=== PATIENT | male | born 1990 | race Caucasian/White ===

== ENCOUNTER 2016-06-17 20:33 | Emergency (ER) | payer BC ==
[~2016-06-17] VITALS: Ht 182.9 cm; Wt 103.6 kg
[2016-06-17 20:40] VITALS: Ht 182.9 cm; Wt 103.6 kg
--- NOTE | 2016-06-17 21:06 | EMERGENCY ROOM VISIT NOTE ---
ED Visit Note First contact with patient: 20:44 CHIEF COMPLAINT: Left thumb laceration HISTORY OF PRESENT ILLNESS: This 25-year-old male patient presents to the emergency department ambulatory after cutting the left thumb just prior to arrival. The patient reports that he was cutting lettuce for a solid and accidentally slipped and cut his left thumb. The bleeding stopped shortly after the injury and there is no weakness or numbness of the area. Tetanus shot is up-to-date. Full range of motion of the thumb. The patient denies any pain. REVIEW OF SYSTEMS: A 6 system review of systems was completed with positives and pertinent negatives listed in the HPI. ALLERGIES: Bactrim MEDICATIONS: No chronic medications PMH: No significant past medical history. SOCIAL HISTORY: The patient lives locally with his son. He is a smoker and denies alcohol use. PHYSICAL EXAM: Vital Signs: Reviewed Nurse's notes, vital signs stable. GENERAL : This is a 25-year-old male, in no acute distress, well-developed, well- nourished. SKIN: There is a 1 cm long laceration to the tip of the left thumb. It is superficial and the edges only mildly gape apart with traction, but lay well without traction. There is no foreign material in the wound and it looks clean. There is no active bleeding. No deep structures such as tendons or nerves are seen in the base of the wound. Extension and flexion of the thumb is full and strong. Sensation to pain and light touch is intact. EMERGENCY DEPARTMENT COURSE: I examined the patient. Verbal consent was obtained to perform the procedure. The laceration was cleaned with betadine and sterile saline and there was no bleeding. The edges of the laceration were approximated and secured with 3 layers of Dermabond glue with good wound approximation. The patient tolerated the procedure well. The patient was discharged home in stable condition. DIAGNOSIS: Left thumb laceration Current/Historical Medications Miscellaneous Medications None (Patient States No Home Meds) Allergies Coded Allergies: Sulfamethoxazole w/Trimethoprim (Unverified Allergy, Unknown, UNKNOWN, 18/03) Vital Signs Date Time Temp Pulse Resp B/P Pulse Ox O2 Delivery O2 Flow Rate FiO2 06/17/16 21:12 37.1 81 16 137/81 98 06/17/16 21:08 81 16 137/81 98 Room Air 06/17/16 20:40 37.1 83 16 140/87 98 Room Air Departure Information Impression Primary Impression: Finger laceration Dispostion Home / Self-Care Condition GOOD Referrals Darnell Gutiérrez M.D. (PCP) Patient Instructions ED Laceration Ext Skin Glue, [facility] Additional Instructions For pain control, you can use the following [id number] medicines (if >12 yo): - Regular strength (325mg/tab) Tylenol (acetaminophen) 2 tabs every 4-6 hours as needed. Do not exceed 12 tablets in a 24 hour period. Avoid taking more than 4 grams (4000 mg) of Tylenol per day. This includes any other sources of acetaminophen you may take on a regular basis. - Regular strength (200 mg/tab) Advil (ibuprofen) 1-2 tabs every 4-6 hours as needed. Do not exceed a dose of 3200 mg per day. No ointments on the Dermabond. This will fall off on its own in several days. Problem Qualifiers Primary Impression: Finger laceration Encounter type: initial encounter Qualified Codes: S61.219A - Laceration without foreign body of unspecified finger without damage to nail, initial encounter
[2016-06-17 21:12] VITALS: BP 137/81; PULSE 81; TEMP 37.1; O2SAT 98
== END 2016-06-17 21:13 | disposition home or self-care (01) ==
LOC: C.EDB 20:34 → C.EDD 21:13
DX: S61.012A Laceration without foreign body of left thumb without damage to nail, initial encounter (principal); W26.0XXA Contact with knife, initial encounter; Y93.G1 Activity, food preparation and clean up; F17.200 Nicotine dependence, unspecified, uncomplicated

== ENCOUNTER → 2016-11-15 | Outpatient (CLI) | payer BC ==
[2016-11-15 12:59] LABS: BASO % 0.6 %; BASO ABS # 0.04 K/uL (0-0.2); COMPLETE YES; HEMATOCRIT 40.7 % (42-52); LYMPH % 28.5 %; LYMPH ABS # 2.04 K/uL (1.2-3.4); MEAN CELL VOLUME 94.4 fL (80-100); MEAN CORPUSCULAR HEMOGLOBIN 31.3 pg (25-34); MEAN CORPUSCULAR HGB CONC 33.2 g/dl (32-36); MEAN PLATELET VOLUME 11.1 fL (7.4-10.4); MONO % 8.9 %; PLATELET COUNT 290 K/uL (130-400); RED BLOOD COUNT 4.31 M/uL (4.7-6.1); WHITE BLOOD COUNT 7.17 K/uL (4.8-10.8)
[2016-11-15 13:30] LABS: URINE APPEARANCE CLEAR (CLEAR); URINE BILIRUBIN NEG (NEG); URINE COLOR YELLOW; URINE EPITHELIAL CELL AUTO 0-5 /lpf (0-5); URINE NITRITE NEG (NEG); URINE PH 6.5 (4.5-7.5); URINE SPECIFIC GRAVITY 1.031 (1.000-1.030); UROBILINOGEN NEG (NEG); ZZUR CULT IF INDIC CLEAN CATCH NO
[2016-11-15 13:34] LABS: ALT/SGPT 60 U/L (12-78); BLOOD UREA NITROGEN 15 mg/dl (7-18); BUN/CREATININE RATIO 17.8 (10-20); CARBON DIOXIDE 25 mmol/L (21-32); CHLORIDE 104 mmol/L (98-107); CHOLESTEROL 214 mg/dl (0-200); CREATININE 0.83 mg/dl (0.60-1.40); GLUCOSE 82 mg/dl (70-99); POTASSIUM 3.9 mmol/L (3.5-5.1); SODIUM 136 mmol/L (136-145); TRIGLYCERIDES 134 mg/dl (0-150); VERY LOW DENSITY LIPOPROT CALC 27 mg/dl
[2016-11-15 13:40] LABS: MANUAL MICROSCOPIC REQUIRED? NO; REVIEW REQ? NO
[2016-11-15 13:44] LABS: ALB/GLOB RATIO 1.2 (0.9-2); ALKALINE PHOSPHATASE 77 U/L (45-117); AST/SGOT 32 U/L (15-37); CHOLESTEROL/HDL RATIO 4.2; HDL CHOLESTEROL 51 mg/dl; LDL CHOLESTEROL CALCULATED 136 mg/dl
== END | disposition home or self-care (01) ==
LOC: C.LABBFT 09:26
PROVIDERS: ATTEND Internal Medicine
DX: R53.83 Other fatigue (principal); Z13.6 Encounter for screening for cardiovascular disorders

== ENCOUNTER → 2016-12-07 | Outpatient (CLI) | payer BC ==
[2016-12-07 12:31] LABS: BASO % 0.3 %; BASO ABS # 0.02 K/uL (0-0.2); COMPLETE YES; EOS % 1.7 %; HEMATOCRIT 40.5 % (42-52); IG% 0.7 %; LYMPH % 36.9 %; LYMPH ABS # 2.21 K/uL (1.2-3.4); MEAN CELL VOLUME 95.1 fL (80-100); MEAN CORPUSCULAR HEMOGLOBIN 32.2 pg (25-34); MEAN CORPUSCULAR HGB CONC 33.8 g/dl (32-36); MEAN PLATELET VOLUME 11.1 fL (7.4-10.4); MONO % 8.2 %; NEUT % 52.2 %; PLATELET COUNT 296 K/uL (130-400); RED BLOOD COUNT 4.26 M/uL (4.7-6.1); WHITE BLOOD COUNT 5.99 K/uL (4.8-10.8)
[2016-12-07 13:32] LABS: FERRITIN 169.3 ng/ml (8.0-388.0)
== END | disposition home or self-care (01) ==
LOC: C.LABBFT 10:26
PROVIDERS: ATTEND Physician Assistant Medical
DX: K92.1 Melena (principal)

== ENCOUNTER 2017-01-31 01:30 | Inpatient (IN) | payer BC ==
[~2017-01-31] VITALS: Ht 182.9 cm; Wt 103.6 kg
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
[2017-01-31 02:23] LABS: BASO % 0.4 %; BASO ABS # 0.03 K/uL (0-0.2); COMPLETE YES; EOS % 1.5 %; HEMATOCRIT 43.2 % (42-52); IG% 0.6 %; LYMPH % 46.9 %; LYMPH ABS # 3.64 K/uL (1.2-3.4); MEAN CELL VOLUME 93.9 fL (80-100); MEAN CORPUSCULAR HEMOGLOBIN 32.6 pg (25-34); MEAN CORPUSCULAR HGB CONC 34.7 g/dl (32-36); MEAN PLATELET VOLUME 10.4 fL (7.4-10.4); MONO % 7.7 %; NEUT % 42.9 %; PLATELET COUNT 319 K/uL (130-400); WHITE BLOOD COUNT 7.76 K/uL (4.8-10.8)
[2017-01-31 02:41] LABS: BUN/CREATININE RATIO 7.5 (10-20); CALCIUM 9.2 mg/dl (8.5-10.1); CREATININE 0.9 mg/dl (0.60-1.40); POTASSIUM 3.9 mmol/L (3.5-5.1)
[2017-01-31 02:51] LABS: ALB/GLOB RATIO 1.1 (0.9-2); THYROID STIMULATING HORMONE 2.5 uIu/ml (0.300-4.500)
[2017-01-31 03:02] LABS: ACETAMINOPHEN < 2 ug/ml (10-30)
[2017-01-31 03:18] LABS: URINE APPEARANCE CLEAR (CLEAR); URINE BILIRUBIN NEG (NEG); URINE COLOR YELLOW; URINE EPITHELIAL CELL AUTO 0-5 /lpf (0-5); URINE NITRITE NEG (NEG); UROBILINOGEN NEG (NEG); ZZUR CULT IF INDIC CLEAN CATCH NO
[2017-01-31 03:19] LABS: MANUAL MICROSCOPIC REQUIRED? NO; REVIEW REQ? NO
[2017-01-31 04:03] LABS: BENZODIAZEPINE, URINE NEG (NEG); COCAINE,URINE NEG (NEG); PHENCYCLIDINE, URINE NEG (NEG)
[2017-01-31] MEDS ORDERED: FLUO40CA8 PO (10:03)
[2017-01-31] MEDS ORDERED: BUSP-8 PO (10:04)
[2017-01-31] MEDS ORDERED: BUSP5TAB59 PO (10:04)
[2017-01-31] MEDS ORDERED: TRAZ50TA35 PO (10:06)
[2017-01-31 11:09] VITALS: O2SAT 99
[2017-01-31] MEDS ORDERED: SODIUM CHLORIDE 0.65% NA SOLN 45 ML (OCEAN) PRN (11:15)
[2017-01-31] MEDS ORDERED: ACETAMINOPHEN 325 MG TAB PO PRN (11:15)
[2017-01-31] MEDS ORDERED: ALUMINUM/MAGNESIUM SUSP 30 ML UDC PO PRN (11:15)
[2017-01-31] MEDS ORDERED: BISMUTH SUBSALICYLATE PER ML OMNICELL CHARGE PO PRN (11:15)
[2017-01-31] MEDS ORDERED: hydrOXYzine HCL 25 MG TAB PO PRN ×2 (11:15)
[2017-01-31] MEDS ORDERED: MAGNESIUM HYDROXIDE SUSP 30 ML UDC PO PRN (11:15)
[2017-01-31 11:46] VITALS: BP 136/72; TEMP 36.6; Ht 182.9 cm; Wt 103.6 kg
[2017-01-31] MEDS ORDERED: INFLUENZA ADMINISTRATION CHARGE ONE (14:00)
[2017-01-31] MEDS ORDERED: INFLUENZA VIRUS QUAD VACCINE 0.5 ML SYR IM. ONE (14:00)
--- NOTE | 2017-01-31 14:29 | EMERGENCY ROOM VISIT NOTE ---
ED Visit Note First contact with patient: 09:06 I received this patient in signout at the change of shift from Dr. Vivar pending mental health evaluation. The patient has signed a 201 and has been accepted by [facility] for inpatient treatment.
--- NOTE | 2017-01-31 16:10 | Psychiatric History & Physical ---
History Date of Service Jan 31, 2017. Identifying Data Fernando Hogue is a 26-year-old male who currently lives in the [place] area with his 5-year-old son. Fernando Hogue was admitted on a 201 voluntary commitment. Patient is admitted from home. The patient was brought to the ED by the family. Information provided by the patient is considered to be reliable. Chief Complaint "I have been under a lot of stress and I was feeling suicidal." History of Present Illness The patient is a 26-year-old man who presented last evening in the emergency room, where he was brought by his family after he told several people, including his mother, his father, and a friend that he was contemplating suicide. He tells me that he has had intermittent bouts of depression since he was 14, but had been doing fairly well and tell recently when his girlfriend announced that she wanted to end the relationship, at least until next May ( when the couple had planned a trip to [place]). The precipitating factor in the admission appears to be in the fact that he and his mother had an angry argument after the patient's mother confronted him about the fact that he was continuing to drink. The patient reports that he ask his mother to try to understand that he is under a great deal of stress, and apparently during the argument he revealed to the mother the fact that he had recently superficially cut his upper thighs with a knife, while intoxicated. Reportedly, the patient said that he was contemplating suicide by gunshot wound, but he tells me that he does not have access to firearms. He does robbins, but the firearms are locked up in his father's gun safe and he does not have a gun in his own home. The patient also tells me that his thoughts of suicide including thoughts of hanging himself in the garage, but he denies that he had any intent to follow through on these thoughts and, instead, was interested in having his parents and his friend understand the degree of his distress. Within this context, the patient reports that his depression is actually improved recently. His outpatient psychiatrist only increased his dose of Prozac to 40 mg daily, and buspirone 15 mg twice a day have been added. The patient states, "I've been a lot less anxious, and my depression is better." The patient acknowledges that he has been consuming alcohol, even though he realizes that this is inconsistent with his best interests and may interfere with the efficacy of his treatment for depression. He tells me that typically he drinks between 6 and 8 beers a night, after his 5-year-old son has gone to bed. However, he notes that his cut back on his alcohol consumption and is only drinking 6-8 beers every 3 or 4 days, and is abstinent on the other nights. The patient reports that he has never consumed alcohol in quantities higher than this amount, but admits that sometimes he does become intoxicated. He has no history of actual suicide attempts, although he said that when he was 14 he tied a shoestring around his stack and then removed it. 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 He was scheduled to start next week, but because of a difficulty with his licensure [place] he will not be able to start until February. He is also a single parent, but notes that he enjoys a great deal of help from both of his parents, especially his mother who assists in his director of early childhood education responsibilities. The patient is currently followed by Dr Marie at [facility], and he also sees a therapist for individual supportive therapy. As above, the patient feels that he is making progress in therapy and considers the events of yesterday and last evening to be an anomaly , precipitated by the argument with his mother.. Past Psychiatric History Current OP Treatment: psychiatrist, therapist Access to a Gun: No (the patient tells me that he enjoys hunting as a leisure activity, but does not own a gun and uses condoms that his father keeps locked up in a gun safe at his father's home. He does not have access to the gun safe. ) Suicide Attempts: No Past Medication Trials The patient reports that he has responded favorably to Prozac and buspirone, with reduced depression and relief in his symptoms of anxiety. Past Medical/Surgical History History of Concussion/Seizure: No Allergies Allergies: Coded Allergies: Sulfamethoxazole w/Trimethoprim (Unverified Allergy, Unknown, UNKNOWN, 01/31/17) Home Medications Scheduled Buspirone Hcl (Buspirone Hcl), 1 TAB PO BID Buspirone Hcl (Buspirone Hcl), 1 TAB PO BID Fluoxetine (Prozac), 40 MG PO DAILY Trazodone Hcl (Trazodone), 50 MG PO HS Family History Diabetes mellitus FH: lung disease History of Suicide: No History of Substance Abuse: No Psychiatric History: Yes Alcohol Use Alcohol Use In Past 12 Months: Yes (every other day - 6 pack ) AUDIT Total Score: 10 The patient reports that he has recently cut back on his alcohol consumption. His peak alcohol consumption had previously been 4-8 beers every evening,, but he is now drinking 4-8 beers a night, but only every 3 or 4 days. Smoking Use Smoking Status: Current Every Day Smoker Personal History Education: advanced degree (the patient says that he graduated at the top of his class in preschool, with a 4.0 grade point average ) Relationship History: never Children: 1 Legal History: none Psychological Trauma History: Denies Hx Traumatic Event Review of Systems Constitutional: denies no symptoms reported, denies see HPI, denies chills, denies diaphoresis, denies fever, denies malaise, denies weakness, denies other Eyes: denies: no symptoms, as stated in HPI, eye pain, tearing, itching, redness, discharge, double vision, visual changes, blurred vision, photophobia, other ENT: denies: no symptoms reported, see HPI, ear pain, ear discharge, loss of hearing, tinnitus, nasal pain, nasal congestion, rhinorrhea, epistaxis, sore throat, stidor, throat swelling, mouth pain, mouth swelling, dental pain, gum swelling, other Cardiovascular: denies: no symptoms reported, see HPI, chest pain, chest tightness, chest pressure, diaphoresis, palpitations, syncope, other Respiratory: denies: no symptoms reported, see HPI, cough, orthopnea, short of breath, stridor, wheezing, sputum production, cyanosis, LIMA, PND, other Gastrointestinal: denies no symptoms reported, denies see HPI, denies abdominal pain, denies constipation, denies diarrhea, denies nausea, denies vomiting, denies other Genitourinary - Male: denies: no symptoms, see HPI, rash, amenorrhea, penile itching, penile discharge, testicular pain, testicular swelling, impotence, other Musculoskeletal: denies no symptoms reported, denies see HPI, denies back pain , denies gout, denies joint pain, denies joint swelling, denies muscle pain, denies muscle stiffness, denies neck pain, denies other Integumentary: denies no symptoms reported, denies see HPI, denies change in color, denies change in hair/nails, denies dryness, denies lesions, denies lumps , denies rash, denies other Neurologic: denies: no symptoms, see HPI, headache, numbness, paresthesias, pre -existing deficit, seizure, tingling, tremors, general weakness, tics, focal weakness, vertigo, lethargy, memory loss, dizziness, other Endocrine: denies: no symptoms, as stated in HPI, cold intolerance, heat intolerance, hair changes, goiter, polydipsia, polyuria, skin changes, other Hematologic / Lymphatic: denies: no symptoms, as stated in HPI, abnormal clotting, adenopathy, anemia, easy bleeding, easy bruising, gums bleeding, petechiae, other Examination Physical Examination A physical exam was performed in the ER prior to admission to the unit. I accept that physical as correct/medical clearance for the inpatient physical exam. Vital Signs Vital Signs Past 12 Hours Date Time Temp Pulse Resp B/P (MAP) Pulse Ox O2 Delivery O2 Flow Rate FiO2 01/31/17 11:46 36.6 14 136/72 01/31/17 11:09 76 14 126/71 99 01/31/17 07:56 71 16 131/78 99 Room Air 01/31/17 05:13 36.6 68 18 114/69 99 Room Air Laboratory Results Last 24 Hours Test 01/31/17 02:14 01/31/17 03:07 White Blood Count 7.76 K/uL Red Blood Count 4.60 M/uL Hemoglobin 15.0 g/dL Hematocrit 43.2 % Mean Corpuscular Volume 93.9 fL Mean Corpuscular Hemoglobin 32.6 pg Mean Corpuscular Hemoglobin Concent 34.7 g/dl Platelet Count 319 K/uL Mean Platelet Volume 10.4 fL Neutrophils (%) (Auto) 42.9 % Lymphocytes (%) (Auto) 46.9 % Monocytes (%) (Auto) 7.7 % Eosinophils (%) (Auto) 1.5 % Basophils (%) (Auto) 0.4 % Neutrophils # (Auto) 3.32 K/uL Lymphocytes # (Auto) 3.64 K/uL Monocytes # (Auto) 0.60 K/uL Eosinophils # (Auto) 0.12 K/uL Basophils # (Auto) 0.03 K/uL RDW Standard Deviation 43.8 fL RDW Coefficient of Variation 12.8 % Immature Granulocyte % (Auto) 0.6 % Immature Granulocyte # (Auto) 0.05 K/uL Sodium Level 139 mmol/L Potassium Level 3.9 mmol/L Chloride Level 106 mmol/L Carbon Dioxide Level 28 mmol/L Anion Gap 5.0 mmol/L Blood Urea Nitrogen 7 mg/dl Creatinine 0.90 mg/dl Est Creatinine Clear Calc Drug Dose 156.2 ml/min Estimated GFR () 137.1 Estimated GFR (Non- 118.3 BUN/Creatinine Ratio 7.5 Random Glucose 89 mg/dl Calcium Level 9.2 mg/dl Total Bilirubin 0.6 mg/dl Aspartate Amino Transf (AST/SGOT) 30 U/L Alanine Aminotransferase (ALT/SGPT) 52 U/L Alkaline Phosphatase 82 U/L Total Protein 8.5 gm/dl Albumin 4.5 gm/dl Globulin 4.0 gm/dl Albumin/Globulin Ratio 1.1 Thyroid Stimulating Hormone (TSH) 2.500 uIu/ml Salicylates Level 2.5 mg/dl Acetaminophen Level < 2 ug/ml Ethyl Alcohol mg/dL 202.0 mg/dl Urine Color YELLOW Urine Appearance CLEAR Urine pH 6.0 Urine Specific [place] 1.010 Urine Protein NEG Urine Glucose (UA) NEG Urine Ketones NEG Urine Occult Blood NEG Urine Nitrite NEG Urine Bilirubin NEG Urine Urobilinogen NEG Urine Leukocyte Esterase NEG Urine WBC (Auto) 0 /hpf Urine RBC (Auto) 0-4 /hpf Urine Hyaline Casts (Auto) 0 /lpf Urine Epithelial Cells (Auto) 0-5 /lpf Urine Bacteria (Auto) NEG Urine Opiates Screen NEG Urine Methadone, Qualitative NEG Urine Barbiturates NEG Urine Phencyclidine (PCP) Level NEG Ur Amphetamine/Methamphetamine NEG MDMA (Ecstasy) Screen NEG Urine Benzodiazepines Screen NEG Urine Cocaine Metabolite NEG Urine Marijuana (THC) NEG Mental Examination During interview pt is: alert and oriented Appearance: appropriately dressed Eye contact is: good Motor behavior is: steady gait & station, no abnormal motor movements Speech: normal in rate, rhythm & volume Affect: depressed Mood is: depressed Thought process: goal directed, linear, logical, clear, coherent Thought content: reality based without delusions Suicidal thought are: present, Plan: present, Intent: denied Homicidal thoughts are: denied Hallucinations: denies auditory, denies visual Cognition: memory grossly intact Intelligence estimated to be: above average Insight: good Judgement: fair Impression / Recommendations Impression This 26-year-old man reports that he has had recurrent bouts of depression, characterized by insomnia, apathy, anergy, anhedonia, and psychosocial withdrawal. He has been under treatment with a local psychiatrist, as well as with a local psychotherapist for depression and anxiety. Although he reports that recently his depression and anxiety have both improved in response to an increase in his dose of Prozac and the inauguration of buspirone 15 mg twice a day, on the day prior to admission he had an argument with his mother, revealed that he had superficially cut his thighs, and threatened suicide he says as a way of communicating to his mother that he needs her to stop criticizing him and putting additional pressure on him. In addition to telling his mother he was suicidal, he acknowledges that he also told his father lives separately from the mother, that he was suicidal, and later in the evening he called a friend who lives in another state and told him that he was having thoughts of suicide. Evidently, the friend contacted the patient's mother, as well as 2 of the patient's local friends, and arrangements were made for the patient to be brought to the emergency room for psychiatric evaluation. The patient acknowledges that he had been drinking at the point that he called the friend to report that he was suicidal, but denies that he had any actual suicidal intent. The patient does say that he had considered hanging himself in the garage, but adds, "I wouldn't actually do that. For one thing I couldn't do it to my son." (The patient is the snf parent for his 5-year-old son) the patient also says that he has only recently engaged in self cutting, and he says that he only does this when he has been drinking. He says that he believed that possibly it would relieve some of the stress and tension, but says that it only makes him feel worse. As above, the patient says that he does not have any history of suicide attempts, but was trying to find a way of communicating to his friends and family that he is under a lot of pressure, and is very distressed about the loss of his romantic relationship, the stress of being a single parent, and the disappointment of not being able to start his new job this month as he had expected. He does endorse ongoing suicidal thoughts, although he is also future oriented. We will provide supportive treatment, continue buspirone 15 mg twice a day and Prozac 40 mg daily. He contracts for safety in the hospital. Inventory Assets Strengths: Intelligent. Academically successful. Has friends and a supportive family Needs: Alcohol abuse. Depression. Anxiety. Poor individual coping skills. Risk Factors Assessment Male: Yes : Yes /single/: Yes Higher / Fall in social status: No Access to guns: No Health problems: No Mental Health Diagnoses: Yes Substance use disorders: Yes Previous attempt: No Smoker: Yes Protective Factors Assessment : No Responsible for young children: Yes Employed: Yes Stable relationships: Yes Supportive family: Yes Good rapport with provider: Yes Absence of risk factors above: Yes Recommendations (1) Depression The patient gives a history of recurrent major depressive episodes that are characterized by depressed mood, insomnia, apathy, anergy, anhedonia, and psychosocial withdrawal. He reports that he has attempted to manage his depression and anxiety through the use of alcohol. Somewhat paradoxically, the patient reports that his depression is actually improved similarly, possibly in response to his reduced consumption of alcohol and several medication adjustments provided by his outpatient psychiatrist. (2) Suicidal ideation The patient continues to endorse suicidal thoughts, although he says "right now , today, I'm not have any thoughts of suicide." As of yesterday though he reported suicidal thoughts, reported these thoughts to several family members and friend, and tells me that he was having thoughts of hanging himself by the patient in the garage of his home. He says that he did not have suicidal intent , and believes that he mostly was trying to help people understand the degree of his distress, after a very difficult "bad day." Copying the situation is the recent romantic disappointment for the patient has experienced as well as other psychosocial stressors. He does not have a history of suicide attempts. (3) Alcohol abuse The patient is aware that his use of alcohol is problematic and is contraindicated within the context of his being in treatment for depression. I reminded him that alcohol is a "depressant," and as such can induce and worsening depression. I also advised him that it could adversely interfere with his psychiatric medications. We discussed participation in Alcoholics Anonymous, and the patient indicates that he will consider this. CPT Code Initial Hospital Care: [id number]
[2017-01-31] MEDS: BusPIRone 15 MG TAB PO SCH (17:33)
[2017-01-31] MEDS: TRAZODONE HCL 50 MG TAB PO SCH (22:16)
[2017-02-01 06:57] VITALS: BP_SYST 123; BP_SYST 126; BP_DIAS 78; BP_DIAS 86; PULSE 60; PULSE 73; TEMP 36.8
[2017-02-01] MEDS: FLUOXETINE HCL 20 MG CAP PO SCH (08:55)
[2017-02-01] MEDS: BusPIRone 15 MG TAB PO SCH ×2 (08:55→17:23)
--- NOTE | 2017-02-01 15:10 | Psychiatric Progress Notes ---
Progress Note Date of Service Feb 01, 2017. Interval History This 26-year-old man was admitted yesterday after he was brought to the emergency room by friends and family because he had threatened suicide either by gunshot wound or by hanging. The patient was intoxicated at the time, and upon sobering said that he was no longer suicidal. However, he didn't endorse ongoing feelings of anxiety and depression. Prior to admission, he had been a patient of Dr. Marie, and notes that his depression had improved after to Dr. Marie increased his dose of Prozac to 40 mg daily and added buspirone 15 mg twice a day. Complicating the clinical picture is the fact the patient acknowledges that he has been drinking between 4 and 8 beers a night, mostly after his 5-year-old son is gone to bed. At the time of admission, the patient reported that the frequency of his alcohol use had diminished from nightly to every 3 or 4 nights. He has no history of suicide attempts, and this is the patient's first psychiatric hospitalization. Chief Complaint "I'm doing a whole lot better". Subjective 02/01/17 --Patient was seen & assessed interval progress reviewed with Treatment Team. I met individually with the patient in order to assess his current mental status, review his treatment plan with him, and discuss matters that may arise The patient tells me that he feels that the hospitalization has been very helpful to him. He reports that it has been liberating to be able to talk about was going on with people that seem to understand, and notes that although he had been very frightened at admission about coming into an inpatient psychiatric unit, he has found the express to be quite therapeutic. The patient clarifies that he was not driving while intoxicated, and, more specifically, the patient reports that he was not operating a motor vehicle while intoxicated order the influence of alcohol with his son in the car. He says that he began drinking later on the day of admission, and did not leave the home and tell he was taken to the emergency room for evaluation. Currently , the patient reports that his mood is "good" and "optimistic." He commits to sobriety, and explains that he understands that his use of alcohol to manage depression and anxiety has had seriously negative consequences that he does not wish to repeat. He points out that his strengths include determination, a willingness to work hard, and he drive to succeed. We will observe the patient overnight tonight. His outpatient psychiatrist is expected to see him tomorrow , and a determination will be made at that time the patient can be discharged to home on Saturday or Saturday, or if he will need a few more days of hospitalization for discharge on Saturday. Sleep Information Total Hours of Sleep: 6.50 Meal Information Percent of Breakfast Consumed: 100 Percent of Lunch Consumed: 100 Percent of Dinner Consumed: 75 Mental Status Exam During interview pt is: alert and oriented Appearance: appropriately dressed Eye contact is: good Motor behavior is: steady gait & station, no abnormal motor movements Speech: normal in rate, rhythm & volume Affect: euthymic Mood is: other ("Good. Not depressed right now. Not anxious.") Thought process: goal directed, linear, logical, clear, coherent Thought content: reality based without delusions Suicidal thought are: denied, Plan: present, Intent: denied Homicidal thoughts are: denied (the patient reports that he believes that he was at some risk for self-harm on the night of admission, as a function of his intoxication. He says that he is very glad that an intervention was made because he has no intent or desire to harm himself other. The patient continues to contract for safety.) Hallucinations: denies auditory, denies visual Cognition: memory grossly intact Intelligence estimated to be: above average Insight: good Judgement: fair Impression This 26-year-old man made several suicide threats on the night prior to and morning of admission to the hospital. He was intoxicated at the time, and explains that he had been under a number of psychosocial stressors, and had been attempting to use alcohol as a mechanism for coping. Somewhat paradoxically, the patient notes that his mood and anxiety levels are actually improved recently, partly in response to interventions by his individual psychotherapist and in response to an increase in his dose of Prozac, with the addition of buspirone 15 mg twice a day. Today, the patient tells me that his mood is "good." He has had no further thoughts of suicide and has developed a safety plan that will include not consuming alcohol, talking with his psychiatrist or therapist should suicidal thoughts emerge, limiting stress, and remaining active. Plan (1) Depression 01/31/17 --The patient gives a history of recurrent major depressive episodes that are characterized by depressed mood, insomnia, apathy, anergy, anhedonia, and psychosocial withdrawal. He reports that he has attempted to manage his depression and anxiety through the use of alcohol. Somewhat paradoxically, the patient reports that his depression is actually improved similarly, possibly in response to his reduced consumption of alcohol and several medication adjustments provided by his outpatient psychiatrist. 02/01/17 -- patient reports that his depression has improved substantially in the hospital, and believes that the supportive psychotherapy services that have been offered here have been very helpful to him. He identifies the use of alcohol as a way of managing anxiety and depression as well as both dangerous and counterproductive, and he is making a commitment to sobriety. Patient is no longer having any suicidal thoughts, and he denies having suicidal intent, although he acknowledges that he might have engaged in self-harm while impaired by alcohol. For that reason, he understands that he is not going to be able to consume any alcohol. His treating psychiatrist will see him harm, and if the treating psychiatrist is in agreement it may be possible for the patient to be discharged to either Saturday or Saturday. (2) Suicidal ideation The patient continues to endorse suicidal thoughts, although he says "right now , today, I'm not have any thoughts of suicide." As of yesterday though he reported suicidal thoughts, reported these thoughts to several family members and friend, and tells me that he was having thoughts of hanging himself by the patient in the garage of his home. He says that he did not have suicidal intent , and believes that he mostly was trying to help people understand the degree of his distress, after a very difficult "bad day." Copying the situation is the recent romantic disappointment for the patient has experienced as well as other psychosocial stressors. He does not have a history of suicide attempts. (3) Alcohol abuse 01/31/17 --The patient is aware that his use of alcohol is problematic and is contraindicated within the context of his being in treatment for depression. I reminded him that alcohol is a "depressant," and as such can induce and worsening depression. I also advised him that it could adversely interfere with his psychiatric medications. We discussed participation in Alcoholics Anonymous, and the patient indicates that he will consider this. 02/01/17 -- as noted above, the patient tells me that he has learned that he was using alcohol as a way of attempting to manage his anxiety and depression. He has come to the realization that while drinking temporarily relieved his anxiety and his feelings of being "stressed out," the consequences have been highly counterproductive and potentially dangerous, and he is making a commitment to sobriety. It is expected that he will be able to use his strength which include perseverance, and a desire to succeed. Discharge / Aftercare Planning Primary Care Physician: Name: Dr Gutiérrez [facility] [place] Date of Appointment: Feb 20, 2017 Time of Appointment: 1:35pm Therapist: Name: Kasie NagyCloudTran Date of Appointment: Feb 05, 2017 Time of Appointment: 1:00pm [facility] Sales: Name: N/A Visit Code E&M Code: 30869 Inventory Assets Strengths: Intelligent. Academically successful. Has friends and a supportive family Needs: Alcohol abuse. Depression. Anxiety. Poor individual coping skills. Risk Factors Assessment Male: Yes : Yes /single/: Yes Higher / Fall in social status: No Health problems: No Mental Health Diagnoses: Yes Substance use disorders: Yes Previous attempt: No Smoker: Yes Protective Factors Assessment : No Responsible for young children: Yes Employed: Yes Stable relationships: Yes Supportive family: Yes Good rapport with provider: Yes Absence of risk factors above: Yes Data Vital Signs Last 24 Hrs: Date Time Temp Pulse Resp B/P (MAP) Pulse Ox O2 Delivery O2 Flow Rate FiO2 02/01/17 06:57 36.8 60 16 123/78 73 126/86 Meds Administered Last 24 Hrs: Meds Administered (Past 24Hrs) Medications (Trade) Dose Ordered Sig/Forest Route Start Time Stop Time Status Last Admin Dose Admin Influenza Virus Vaccine Quadrival (Flucelvax Quad Vaccine) 0.5 ml ONCE ONCE IM. 01/31/17 14:00 01/31/17 14:01 DC 01/31/17 22:20 0.5 ML Fluoxetine HCl (Prozac Cap) 40 mg QAM PO 02/01/17 09:00 03/03/17 08:59 02/01/17 08:55 40 MG Buspirone HCl (BusPAR TAB) 15 mg BID17 PO 01/31/17 17:00 03/02/17 16:59 02/01/17 08:55 15 MG Trazodone HCl (Desyrel Tab) 50 mg HS PO 01/31/17 22:00 03/02/17 21:59 01/31/17 22:16 50 MG
[2017-02-01] MEDS: TRAZODONE HCL 50 MG TAB PO SCH (22:50)
[2017-02-02 06:48] VITALS: BP_SYST 119; BP_SYST 128; BP_DIAS 72; BP_DIAS 77; PULSE 57; PULSE 74; TEMP 36.9
[2017-02-02] MEDS: FLUOXETINE HCL 20 MG CAP PO SCH (08:43)
[2017-02-02] MEDS: BusPIRone 15 MG TAB PO SCH ×2 (08:43→17:22)
--- NOTE | 2017-02-02 16:41 | Psychiatric Progress Notes ---
Progress Note Date of Service Feb 02, 2017. Interval History This 26-year-old man was admitted yesterday after he was brought to the emergency room by friends and family because he had threatened suicide either by gunshot wound or by hanging. The patient was intoxicated at the time, and upon sobering said that he was no longer suicidal. However, he didn't endorse ongoing feelings of anxiety and depression. Prior to admission, he had been a patient of Dr. Marie, and notes that his depression had improved after to Dr. Marie increased his dose of Prozac to 40 mg daily and added buspirone 15 mg twice a day. Complicating the clinical picture is the fact the patient acknowledges that he has been drinking between 4 and 8 beers a night, mostly after his 5-year-old son is gone to bed. At the time of admission, the patient reported that the frequency of his alcohol use had diminished from nightly to every 3 or 4 nights. He has no history of suicide attempts, and this is the patient's first psychiatric hospitalization. Chief Complaint "this was a wake up call". Subjective Patient was seen & assessed interval progress reviewed with nursing. Seen with Cici DODGE observing. Pt is known to senior mortgage underwriter as seen currently as an outpt under my care. Pt endorsed SI while drinking prior to admission and how realizes how much has been using alcohol as a self medicating attempt to deal with things but worsens everything and how things fall apart when he uses the alcohol to handle the intense stressors.He processed feeling nagged by his mother in two interactions recently during today's assessment. He shared how he had a good discussion with father the day prior to admission. Father s out of town on a hunting trip but will be back by Saturday. HE plans ot stay with father once Father is back in town but will have mother stay with him till father comes back in town. Pt is open to seeing a substance based counselor on top of his individual therapist. He is finding his medications to be alleviating for him and wants to maintain the prozac and buspar dosage. He is comfortable not using chantix for now since only resumed smoking for a few days and not having urges to smoke currently. He is open to not drinking any alcohol for time being and then down the road consider contained limited sporadic drinking of alcohol only. He is interested in maintaining appts with his therapist and with senior mortgage underwriter as an outpt. He shared how has not had SI since admission and no urges or thoughts towards SIB. He is planning to continue being more active to help fill the time that is aviable to him between now and the start of his new job. He would like to be discharged soon. no manic symptoms no psychotic symptoms Review of Systems Constitutional: No fever, No chills, No sweats, No weight loss, No weakness, No fatigue, No problem reported ENT: No hearing loss, No unusual epistaxis, No nasal symptoms, No sore throat, No tinnitus, No dental problems, No trouble swallowing, No problem reported Respiratory: No cough, No sputum, No wheezing, No shortness of breath, No dyspnea on exertion, No dyspnea at rest, No hemoptysis, No problem reported Cardiovascular: No chest pain, No orthopnea, No PND, No edema, No claudication , No palpitations, No problem reported Abdomen: No pain, No nausea, No vomiting, No diarrhea, No constipation, No GI bleeding, No problem reported Musculoskeletal: No joint pain, No muscle pain, No swelling, No calf pain, No problem reported Psychiatric: + problem reported (as above denied other ) Sleep Information Total Hours of Sleep: 6.00 Meal Information Percent of Breakfast Consumed: 90 Percent of Lunch Consumed: 100 Percent of Dinner Consumed: 100 Mental Status Exam During interview pt is: alert and oriented Appearance: appropriately dressed Eye contact is: good Motor behavior is: steady gait & station, no abnormal motor movements Speech: normal in rate, rhythm & volume Affect: euthymic Mood is: other ("Good. Not depressed right now. Not anxious.") Thought process: goal directed, linear, logical, clear, coherent Thought content: reality based without delusions Suicidal thought are: denied, Plan: present, Intent: denied Homicidal thoughts are: denied Hallucinations: denies auditory, denies visual Cognition: memory grossly intact Intelligence estimated to be: above average Insight: good Judgement: fair Impression This 26-year-old man made several suicide threats on the night prior to and morning of admission to the hospital. He was intoxicated at the time, and explains that he had been under a number of psychosocial stressors, and had been attempting to use alcohol as a mechanism for coping. Somewhat paradoxically, the patient notes that his mood and anxiety levels are actually improved recently, partly in response to interventions by his individual psychotherapist and in response to an increase in his dose of Prozac, with the addition of buspirone 15 mg twice a day. Today, the patient tells me that his mood is "good." He has had no further thoughts of suicide and has developed a safety plan that will include not consuming alcohol, talking with his psychiatrist or therapist should suicidal thoughts emerge, limiting stress, and remaining active. Plan (1) Depression 01/31/17 --The patient gives a history of recurrent major depressive episodes that are characterized by depressed mood, insomnia, apathy, anergy, anhedonia, and psychosocial withdrawal. He reports that he has attempted to manage his depression and anxiety through the use of alcohol. Somewhat paradoxically, the patient reports that his depression is actually improved similarly, possibly in response to his reduced consumption of alcohol and several medication adjustments provided by his outpatient psychiatrist. 02/01/17 -- patient reports that his depression has improved substantially in the hospital, and believes that the supportive psychotherapy services that have been offered here have been very helpful to him. He identifies the use of alcohol as a way of managing anxiety and depression as well as both dangerous and counterproductive, and he is making a commitment to sobriety. Patient is no longer having any suicidal thoughts, and he denies having suicidal intent, although he acknowledges that he might have engaged in self-harm while impaired by alcohol. For that reason, he understands that he is not going to be able to consume any alcohol. His treating psychiatrist will see him harm, and if the treating psychiatrist is in agreement it may be possible for the patient to be discharged to either Saturday or Saturday. 02/02/17 maintained meds unchanged, addressed alcohol use as aggravating factor. addressed responses to dose raise of prozac to 40mg and addition of buspar. addressed stressors of breaking up with gf, interpersonal tension with mother. encouraged family meeting wiht mother, pt prefers to do this as part of an outpt appt with outpt therapist since feels it would be more likely to be productive in that setting. (2) Suicidal ideation The patient continues to endorse suicidal thoughts, although he says "right now , today, I'm not have any thoughts of suicide." As of yesterday though he reported suicidal thoughts, reported these thoughts to several family members and friend, and tells me that he was having thoughts of hanging himself by the patient in the garage of his home. He says that he did not have suicidal intent , and believes that he mostly was trying to help people understand the degree of his distress, after a very difficult "bad day." Copying the situation is the recent romantic disappointment for the patient has experienced as well as other psychosocial stressors. He does not have a history of suicide attempts. 02/02 - denied further SI and contracts for safety outside of the hospital (3) Alcohol abuse 01/31/17 --The patient is aware that his use of alcohol is problematic and is contraindicated within the context of his being in treatment for depression. I reminded him that alcohol is a "depressant," and as such can induce and worsening depression. I also advised him that it could adversely interfere with his psychiatric medications. We discussed participation in Alcoholics Anonymous, and the patient indicates that he will consider this. 02/01/17 -- as noted above, the patient tells me that he has learned that he was using alcohol as a way of attempting to manage his anxiety and depression. He has come to the realization that while drinking temporarily relieved his anxiety and his feelings of being "stressed out," the consequences have been highly counterproductive and potentially dangerous, and he is making a commitment to sobriety. It is expected that he will be able to use his strength which include perseverance, and a desire to succeed. 02/02/17 - pt willing to abstain from alcohol usage for time being with potential of retrying contained moderate drinking that is sporadic only sometime in the future. Pt open to adding outpt substance based counselor to his outpt aftercare. Discharge / Aftercare Planning Primary Care Physician: Name: Dr Gutiérrez Appointment Notes: As need as needed [facility] Date of Appointment: Feb 20, 2017 Time of Appointment: 1:35pm Therapist: Name: Kasie EnnisVisionGateLazara Date of Appointment: Feb 05, 2017 Time of Appointment: 1:00pm Home Health Outreach Coordinator: Name: N/A Visit Code E&M Code: 93452 Inventory Assets Strengths: Intelligent. Academically successful. Has friends and a supportive family Needs: Alcohol abuse. Depression. Anxiety. Poor individual coping skills. Risk Factors Assessment Male: Yes : Yes /single/: Yes Higher / Fall in social status: No Health problems: No Mental Health Diagnoses: Yes Substance use disorders: Yes Previous attempt: No Smoker: Yes Protective Factors Assessment : No Responsible for young children: Yes Employed: Yes Stable relationships: Yes Supportive family: Yes Good rapport with provider: Yes Absence of risk factors above: Yes Data Vital Signs Last 24 Hrs: Date Time Temp Pulse Resp B/P (MAP) Pulse Ox O2 Delivery O2 Flow Rate FiO2 02/02/17 06:48 36.9 57 16 119/72 74 128/77 Meds Administered Last 24 Hrs: Meds Administered (Past 24Hrs) Medications (Trade) Dose Ordered Sig/Forest Route Start Time Stop Time Status Last Admin Dose Admin Fluoxetine HCl (Prozac Cap) 40 mg QAM PO 02/01/17 09:00 03/03/17 08:59 02/02/17 08:43 40 MG Buspirone HCl (BusPAR TAB) 15 mg BID17 PO 01/31/17 17:00 03/02/17 16:59 02/02/17 08:43 15 MG Trazodone HCl (Desyrel Tab) 50 mg HS PO 01/31/17 22:00 03/02/17 21:59 02/01/17 22:50 50 MG
[2017-02-02] MEDS: TRAZODONE HCL 50 MG TAB PO SCH (22:34)
[2017-02-03 06:50] VITALS: BP_SYST 118; BP_SYST 119; BP_DIAS 73; BP_DIAS 75; PULSE 62; PULSE 66; TEMP 36.5
[2017-02-03] MEDS: BusPIRone 15 MG TAB PO SCH (08:22)
[2017-02-03] MEDS: FLUOXETINE HCL 20 MG CAP PO SCH (08:22)
--- NOTE | 2017-02-03 10:05 | Discharge Instructions ---
Discharge Information Report Includes Report will include the: Discharge Instructions & Summary Admission Admission Date / Time: Jan 31, 2017 at 11:25 Reason for Admission: Depression, Suicidal Ideation Discharge Discharge Diagnosis / Problem: Major Depressive Disorder, recurrent, severe Condition at Discharge: Good Discharge Goals Goal(s): Improve function Activity Recommendations Activity Limitations: resume your previous activity . Instructions / Follow-Up Instructions / Follow-Up . SPECIAL CARE INSTRUCTIONS: 1. Follow through with your scheduled aftercare appointments. If unable to keep an appointment, please call to reschedule. 2. Take your medication only as prescribed. Medication should not be changed or stopped without the approval of your doctor. In the event of worsening symptoms or concerns about side effects, contact your doctor immediately. 3. Utilize new healthy coping skills, anger management skills, and stress management skills learned during your hospitalization. Journal feelings and process them with a support person. Identify stressors or situations that may result in relapse, deterioration or inappropriate behaviors and develop a plan to deal with those issues. 4. If your coping skills are ineffective and you are in crisis, contact your outpatient providers for direction. If unable to reach your providers, please call the CAN HELP LINE AT or go to the closest Emergency Room. 5. Avoid alcohol and un-prescribed drugs. 6. You have been provided with the Mental Health Advance Directives Pamphlet for your review. AFTERCARE APPOINTMENTS: * Please call your insurance company prior to your scheduled appointment to confirm your aftercare providers are covered. Take your insurance information to your appointments. . Discharge / Aftercare Planning Primary Care Physician: Name: Dr Gutiérrez Appointment Notes: As need as needed Psychiatrist: Name: Dr Marie[facility] Date of Appointment: Feb 05, 2017 Time of Appointment: 12:30pm Therapist: Name Of Therapist: Kasie EnnisBravofly Date of Appointment: Feb 05, 2017 Time of Appointment: 1:00pm Anatomy Professor: Name: N/A referral for outpatient substance counseling Esteban Ruiz, to call [facility] at [phone] on Saturday February 04, 2017 to set up. . Follow-Up Care Plan for Follow-Up Care: Attend appointments with psychiatrist and psychotherapist. Establish outpatient substance based counseling, you indicated a preference to try to see Esteban Ruiz, as seen him in the past and you should call [facility] on Saturday morning to make those arrangements. Have mother reside with you for next couple days then reside with father for time being. Current Hospital Diet Patient's current hospital diet: Regular Diet Discharge Diet Recommended Diet: Regular Diet Procedures Procedures Performed: No Pending Studies Pending Studies at Discharge: No Medical Emergencies . Who to Call and When: Medical Emergencies: For questions or emergencies related to your hospital stay, please contact the Inpatient Behavioral Health Unit at [phone]. A biomass production manager is on-call 15/10 for the Behavioral Health Unit for emergencies At any time you feel your situation is an emergency, you may also call 911 immediately. . Non-Emergent Contact Non-Emergency issues call your: Primary Care Provider, Psychiatrist, Therapist suicidal or self harming concerns are present Advance Directives Do You Have an Existing Mental: Yes Existing Living Will: Yes Existing Power of Plant Quality Manager: No The Person Making Decisions: N/A Advance Directives Info Given: To Pt/S.O. Advance Directives Reason: Declines as Mental Health Visit. Discharge Summary Admission HPI Per the Admitting provider: The patient is a 26-year-old man who presented last evening in the emergency room, where he was brought by his family after he told several people, including his mother, his father, and a friend that he was contemplating suicide. He tells me that he has had intermittent bouts of depression since he was 14, but had been doing fairly well and tell recently when his girlfriend announced that she wanted to end the relationship, at least until next May ( when the couple had planned a trip to [place]). The precipitating factor in the admission appears to be in the fact that he and his mother had an angry argument after the patient's mother confronted him about the fact that he was continuing to drink. The patient reports that he ask his mother to try to understand that he is under a great deal of stress, and apparently during the argument he revealed to the mother the fact that he had recently superficially cut his upper thighs with a knife, while intoxicated. Reportedly, the patient said that he was contemplating suicide by gunshot wound, but he tells me that he does not have access to firearms. He does robbins, but the firearms are locked up in his father's gun safe and he does not have a gun in his own home. The patient also tells me that his thoughts of suicide including thoughts of hanging himself in the garage, but he denies that he had any intent to follow through on these thoughts and, instead, was interested in having his parents and his friend understand the degree of his distress. Within this context, the patient reports that his depression is actually improved recently. His outpatient psychiatrist only increased his dose of Prozac to 40 mg daily, and buspirone 15 mg twice a day have been added. The patient states, "I've been a lot less anxious, and my depression is better." The patient acknowledges that he has been consuming alcohol, even though he realizes that this is inconsistent with his best interests and may interfere with the efficacy of his treatment for depression. He tells me that typically he drinks between 6 and 8 beers a night, after his 5-year-old son has gone to bed. However, he notes that his cut back on his alcohol consumption and is only drinking 6-8 beers every 3 or 4 days, and is abstinent on the other nights. The patient reports that he has never consumed alcohol in quantities higher than this amount, but admits that sometimes he does become intoxicated. He has no history of actual suicide attempts, although he said that when he was 14 he tied a shoestring around his stack and then removed it. 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 He was scheduled to start next week, but because of a difficulty with his licensure [place] he will not be able to start until February. He is also a single parent, but notes that he enjoys a great deal of help from both of his parents, especially his mother who assists in his child care supervisor responsibilities. The patient is currently followed by Dr Marie at [facility], and he also sees a therapist for individual supportive therapy. As above, the patient feels that he is making progress in therapy and considers the events of yesterday and last evening to be an anomaly , precipitated by the argument with his mother.. Hospital Course (1) Depression 11/9/17 --The patient gives a history of recurrent major depressive episodes that are characterized by depressed mood, insomnia, apathy, anergy, anhedonia, and psychosocial withdrawal. He reports that he has attempted to manage his depression and anxiety through the use of alcohol. Somewhat paradoxically, the patient reports that his depression is actually improved similarly, possibly in response to his reduced consumption of alcohol and several medication adjustments provided by his outpatient psychiatrist. 02/01/17 -- patient reports that his depression has improved substantially in the hospital, and believes that the supportive psychotherapy services that have been offered here have been very helpful to him. He identifies the use of alcohol as a way of managing anxiety and depression as well as both dangerous and counterproductive, and he is making a commitment to sobriety. Patient is no longer having any suicidal thoughts, and he denies having suicidal intent, although he acknowledges that he might have engaged in self-harm while impaired by alcohol. For that reason, he understands that he is not going to be able to consume any alcohol. His treating psychiatrist will see him harm, and if the treating psychiatrist is in agreement it may be possible for the patient to be discharged to either Saturday or Saturday. 02/02/17 maintained meds unchanged, addressed alcohol use as aggravating factor. addressed responses to dose raise of prozac to 40mg and addition of buspar. addressed stressors of breaking up with gf, interpersonal tension with mother. encouraged family meeting with mother, pt prefers to do this as part of an outpt appt with outpt therapist since feels it would be more likely to be productive in that setting. 02/03/17 pt reviewed safety plan. Pt preparing self for upcoming new job starting in about 3 weeks. Pt comfortable with meds unchanged for now. moved appointment with Dr. Marie up to SaturdayFeb 05 with maintaining Feb 20 as a follow up appt for after that. Will have mother reside wiht him for next few days and then reside with father when father comes back into town on Saturday. Plans to have mother attend an outpt therapy appt shortly to help address interpersonal aspects between mother and pt, pt reported mother is comfortable with that. Pt preferred this over family meeting while inpt. Discharge today (2) Suicidal ideation The patient continues to endorse suicidal thoughts, although he says "right now , today, I'm not have any thoughts of suicide." As of yesterday though he reported suicidal thoughts, reported these thoughts to several family members and friend, and tells me that he was having thoughts of hanging himself by the patient in the garage of his home. He says that he did not have suicidal intent , and believes that he mostly was trying to help people understand the degree of his distress, after a very difficult "bad day." Copying the situation is the recent romantic disappointment for the patient has experienced as well as other psychosocial stressors. He does not have a history of suicide attempts. 02/02 - denied further SI and contracts for safety outside of the hospital 02/03 - no SI, denied urges/thoughts to self injure. addressed safety plan. discharge today. (3) Alcohol abuse 01/31/17 --The patient is aware that his use of alcohol is problematic and is contraindicated within the context of his being in treatment for depression. I reminded him that alcohol is a "depressant," and as such can induce and worsening depression. I also advised him that it could adversely interfere with his psychiatric medications. We discussed participation in Alcoholics Anonymous, and the patient indicates that he will consider this. 02/01/17 -- as noted above, the patient tells me that he has learned that he was using alcohol as a way of attempting to manage his anxiety and depression. He has come to the realization that while drinking temporarily relieved his anxiety and his feelings of being "stressed out," the consequences have been highly counterproductive and potentially dangerous, and he is making a commitment to sobriety. It is expected that he will be able to use his strength which include perseverance, and a desire to succeed. 02/02/17 - pt willing to abstain from alcohol usage for time being with potential of retrying contained moderate drinking that is sporadic only sometime in the future. Pt open to adding outpt substance based counselor to his outpt aftercare. 02/03 - pt self expressing desire to abstain from alcohol usage for extended time with consideration of reintroducing alcohol in contained manner only sometime in the distant future. Pt open to and indicates plan to set up adding outpt Substance Based counseling, Pt has seen Esteban Ruiz for some appointments in past and would like to see him again for this. Risk Factors Assessment Male: Yes : Yes /single/: Yes Higher / Fall in social status: No Health problems: No Mental Health Diagnoses: Yes Substance use disorders: Yes Previous attempt: No Smoker: Yes Protective Factors Assessment : No Responsible for young children: Yes Employed: Yes Stable relationships: Yes Supportive family: Yes Good rapport with provider: Yes Absence of risk factors above: Yes Day of Discharge Assessment improved mood, feeling good, affect congruent and calm and more euthymic, no si or hi, linear goal directed, nl speech, insight and judgment intact, no hallucinations, nl psychomotor activity, pt invested in outpt treatment and medications. No planning to smoke and willing to take chantix in future again if does resume smoking. Plans to abstain fully from alcohol. denied s/e to meds plans to have mother reside with him and son for next few days and then to reside with father for time being. Laboratory Test 01/31/17 02:14 01/31/17 03:07 White Blood Count 7.76 Red Blood Count 4.60 Hemoglobin 15.0 Hematocrit 43.2 Mean Corpuscular Volume 93.9 Mean Corpuscular Hemoglobin 32.6 Mean Corpuscular Hemoglobin Concent 34.7 Platelet Count 319 Mean Platelet Volume 10.4 Neutrophils (%) (Auto) 42.9 Lymphocytes (%) (Auto) 46.9 Monocytes (%) (Auto) 7.7 Eosinophils (%) (Auto) 1.5 Basophils (%) (Auto) 0.4 Neutrophils # (Auto) 3.32 Lymphocytes # (Auto) 3.64 Monocytes # (Auto) 0.60 Eosinophils # (Auto) 0.12 Basophils # (Auto) 0.03 RDW Standard Deviation 43.8 RDW Coefficient of Variation 12.8 Immature Granulocyte % (Auto) 0.6 Immature Granulocyte # (Auto) 0.05 Sodium Level 139 Potassium Level 3.9 Chloride Level 106 Carbon Dioxide Level 28 Anion Gap 5.0 Blood Urea Nitrogen 7 Creatinine 0.90 Est Creatinine Clear Calc Drug Dose 156.2 Estimated GFR () 137.1 Estimated GFR (Non- 118.3 BUN/Creatinine Ratio 7.5 Random Glucose 89 Calcium Level 9.2 Total Bilirubin 0.6 Aspartate Amino Transferase (AST) 30 Alanine Aminotransferase (ALT) 52 Alkaline Phosphatase 82 Total Protein 8.5 Albumin 4.5 Globulin 4.0 Albumin/Globulin Ratio 1.1 Thyroid Stimulating Hormone (TSH) 2.500 Salicylates Level 2.5 Acetaminophen Level < 2 Ethyl Alcohol mg/dL 202.0 Urine Color YELLOW Urine Appearance CLEAR Urine pH 6.0 Urine Specific [place] 1.010 Urine Protein NEG Urine Glucose (UA) NEG Urine Ketones NEG Urine Occult Blood NEG Urine Nitrite NEG Urine Bilirubin NEG Urine Urobilinogen NEG Urine Leukocyte Esterase NEG Urine WBC (Auto) 0 Urine RBC (Auto) 0-4 Urine Hyaline Casts (Auto) 0 Urine Epithelial Cells (Auto) 0-5 Urine Bacteria (Auto) NEG Urine Opiates Screen NEG Urine Methadone, Qualitative NEG Urine Barbiturates NEG Urine Phencyclidine (PCP) Level NEG Ur Amphetamine/Methamphetamine NEG MDMA (Ecstasy) Screen NEG Urine Benzodiazepines Screen NEG Urine Cocaine Metabolite NEG Urine Marijuana (THC) NEG Total Time Total Time Spent (min): Greater than 30 minutes Total Time Included: examination of the patient, discharge planning, medication reconciliation Tobacco Cessation at Discharge Smoking Status: Former Smoker (pt quit motnhs ago with full chantix course, some cig use past 1-2 weeks while depressive symptoms worsened, pt does not want to smoke further) FDA approved Prescription: declined med & out pt counseling (pt declined chantix at this time, as well as nictonine replacement, Dr. Marie rx'd chantix spring 2016 and will address with pt in outpt f/u appts about possible resuming it if smoking, pt ok with this and willing to take again if smoking resumes)
== END 2017-02-03 10:58 | disposition home or self-care (01) | DRG 885 ==
LOC: C.EDB 01:32 → C.MHU 11:25
PROVIDERS: ADMIT Psychiatry & Neurology Psychiatry; ATTEND Psychiatry & Neurology Psychiatry
DX: F33.9 Major depressive disorder, recurrent, unspecified (principal); R45.851 Suicidal ideations; F10.120 Alcohol abuse with intoxication, uncomplicated; F17.200 Nicotine dependence, unspecified, uncomplicated; Z79.899 Other long term (current) drug therapy